=== PATIENT | female | born 1965 | race Two or more races ===

== ENCOUNTER 2020-03-28 12:07 | Outpatient (CLI) | payer OTHER ==
[~2020-03-28 12:07] MED LIST: NABUMETONE500 MG PO; PERCOCET 5/3251 TAB PO
== END 2020-03-28 12:12 | disposition home or self-care (01) ==
LOC: SONOGRAMA 12:07
PROVIDERS: ATTEND Pathology Anatomic Pathology & Clinical Pathology
DX: E04.2 Nontoxic multinodular goiter (principal)

== ENCOUNTER 2023-07-28 11:28 | Inpatient (IN) | payer OTHER ==
[~2023-07-28] VITALS: Ht 162.6 cm; Wt 61.2 kg
--- NOTE | 2023-07-28 11:48 | NUR ---
SE RECIBE PACIENTE ALERTA Y ORIENTADA EN COMPANIA DE [facility]. AYE REFIERE QUE PACIENTE VIENE A TRISTAN POR REFERIDO DE DR.JORGE MORGANYA ENOCH PARA QUE ADMITAN A PACIENTE POR DX DE PIEDRAS EN LA VESICULA. PACIENTE REFIERE DOLOR ADBOMINAL. SE MIDEN S/V Y SE UBICA.
[2023-07-28] MEDS ORDERED: MEPERIDINE HCL/PF 50 MG/ML VIAL IM SCH (13:00)
[2023-07-28] MEDS ORDERED: CIPROFLOXACIN IN 5 % DEXTROSE 200 ML IV SCH (13:30)
[2023-07-28] MEDS ORDERED: METRONIDAZOLE/SODIUM CHLORIDE 500 MG/100 ML PIGGYBACK IV SCH (13:32)
[2023-07-28] MEDS ORDERED: PROMETHAZINE HCL 25 MG/ML AMPUL IM SCH (13:37)
[2023-07-28] MEDS ORDERED: POTASSIUM CHLORIDE/D5-0.9%NACL 20 MEQ/1,000 ML PIGGYBAG IV ONE (13:45)
[2023-07-28] MEDS ORDERED: MEPERIDINE HCL 25 MG/ML AMPUL IM PRN (13:45)
[2023-07-28] MEDS ORDERED: PROMETHAZINE HCL 25 MG/ML AMPUL IM PRN (14:25)
[2023-07-28 14:45] LABS: CALCIUM 9.2 mg/dL (8.5-10.1); CREATININE SERUM 0.73 mg/dL (0.55-1.02); GFR 81.88; POTASSIUM 3.24 mEq/L (3.5-5.1)
[2023-07-28 14:53] LABS: INR 1.02; PARTIAL THROMBOPLASTIN TIME 28.8 SECONDS (22.0-34.0); PROTHROMBIN TIME 10.7 SECONDS (9.0-11.5)
[2023-07-28] MEDS ORDERED: FAMOTIDINE/PF 20 MG in 0.9 % SODIUM CHLORIDE 8 ML IV PUSH SCH (16:11)
[2023-07-28] MEDS ORDERED: POTASSIUM CHLORIDE IN WATER 100 ML IV ONE (16:15)
[2023-07-28 17:02] LABS: HEMATOCRIT 37.2 % (36.0-45.00); HEMOGLOBIN 12.4 g/dL (12.0-15.00); MEAN CELL VOLUME 89.1 fL (80.00-100.00); MEAN CORPUSCULAR HEMOGLOBIN 29.7 pg (27.00-32.0); MEAN CORPUSCULAR HGB CONC 33.4 g/dl (32.0-36.0); PLATELET COUNT 239 K/uL (150-450); RED BLOOD COUNT 4.18 M/uL (4.00-6.00); RED CELL DISTRIBUTION WIDTH 13.9 % (11.5-14.5)
[2023-07-28] MEDS ORDERED: DEXTROSE 50 % IN WATER 0.5 G/ML DISP.SYRIN IV PRN (17:30)
[2023-07-28] MEDS ORDERED: INSULIN LISPRO 1,000 UNIT/10 ML UNITS SUBCUTANEO PRN (17:30)
[2023-07-28 19:27] LABS: URINE APPEARANCE Clear; URINE BILIRRUBIN Negative (NEGATIVE); URINE BLOOD Negative; URINE COLOR Yellow; URINE GLUCOSE Negative (NEGATIVE); URINE LEUKOCYTE Trace; URINE NITRATE Negative; URINE PROTEIN Negative (NEGATIVE); URINE UROBILINOGEN 0.2 E.U./dl
[2023-07-28 19:31] LABS: URINE BACTERIA 731.8 uL (0.0-1933); URINE EPITHELIAL CELLS 17.4 uL (0.0-38.8); URINE RBC 11.6 uL (0.0-20.8); URINE WBC 12.5 uL (0.0-23.2)
[2023-07-29 05:11] LABS: HEMATOCRIT 39.5 % (36.0-45.00); HEMOGLOBIN 12.9 g/dL (12.0-15.00); MEAN CELL VOLUME 91.2 fL (80.00-100.00); MEAN CORPUSCULAR HEMOGLOBIN 29.9 pg (27.00-32.0); MEAN CORPUSCULAR HGB CONC 32.7 g/dl (32.0-36.0); PLATELET COUNT 169 K/uL (150-450); RED BLOOD COUNT 4.33 M/uL (4.00-6.00); RED CELL DISTRIBUTION WIDTH 13.4 % (11.5-14.5)
[2023-07-29 05:39] LABS: BILIRUBIN TOTAL 0.47 mg/dL (0.3-1.2); CALCIUM 8.5 mg/dL (8.5-10.1); CREATININE SERUM 0.64 mg/dL (0.55-1.02); GFR 95.31; GLOBULINA 3.3 G/DL (2.4-3.5); MAGNESIUM 1.7 mg/dL (1.8-2.4); PHOSPHOROUS 4.4 mg/dL (2.5-4.9); POTASSIUM 4.2 mEq/L (3.5-5.1); TOTAL PROTEIN 6.3 gm/dL (6.4-8.2)
[2023-07-29] MEDS ORDERED: PATIENTS OWN MEDICATION (MEDICAMENTO EN PISO) PO SCH (09:00)
[2023-07-29] MEDS ORDERED: 0.9 % SODIUM CHLORIDE 1,000 ML IV SCH (15:45)
[2023-07-30] MEDS ORDERED: SUGAMMADEX SODIUM 200 MG/2 ML VIAL IV ONE ×2 (07:57→08:30)
[2023-07-30] MEDS ORDERED: BUPIVACAINE HCL/PF 0.5% 30ML ML ONE (07:57)
[2023-07-30] MEDS ORDERED: BUPIVACAINE HCL/PF 0.5% 5MG/ML VIAL IJ ONE (08:30)
[2023-07-30] MEDS ORDERED: PATIENTS OWN MEDICATION (MEDICAMENTO EN PISO) PO SCH (09:00)
[2023-07-30] MEDS ORDERED: OxyCODONE HCL/APAP UD (PERCOCET) PO PRN (09:30)
[2023-07-30] MEDS ORDERED: MEPERIDINE HCL/PF 50 MG/ML VIAL IM PRN (09:30)
[2023-07-30] MEDS ORDERED: ONDANSETRON HCL 2 MG/ML VIAL ONE (10:47)
[2023-07-30] MEDS ORDERED: POTASSIUM CHLORIDE/D5-0.45NACL 20 MEQ/1,000 ML PIGGYBAG IV NR (11:43)
[2023-07-30] MEDS ORDERED: CIPROFLOXACIN IN 5 % DEXTROSE 400 MG/200 ML PIGGYBAG IV ONE (12:32)
[2023-07-30] MEDS ORDERED: FAMOTIDINE/PF 20 MG/2 ML VIAL ONE (12:32)
[2023-07-30] MEDS ORDERED: FAMOTIDINE/PF 20 MG/2 ML VIAL IV SCH (21:00)
== END 2023-07-31 12:23 | disposition home or self-care (01) | DRG 419 ==
LOC: ER 11:28 → MEDJ 14:43 → SEC-K 14:43 → MEDJ 16:59 → SURH 07-30 10:52
PROVIDERS: General Practice; Internal Medicine; ADMIT Specialist; ATTEND Specialist
PROC: BF37ZZZ Magnetic Resonance Imaging (MRI) of Pancreas (ICD-10-PCS; 2023-07-28)
PROC: BW40ZZZ Ultrasonography of Abdomen (ICD-10-PCS; 2023-07-29)
PROC: BF522Z0 Other Imaging of Gallbladder using Fluorescing Agent, Intraoperative (ICD-10-PCS; 2023-07-30)
PROC: 0FT44ZZ Resection of Gallbladder, Percutaneous Endoscopic Approach (ICD-10-PCS; principal; 2023-07-30 07:00)
DX: K80.10 Calculus of gallbladder with chronic cholecystitis without obstruction (principal); Z20.822 Contact with and (suspected) exposure to COVID-19; E03.9 Hypothyroidism, unspecified

== ENCOUNTER 2024-09-01 11:43 | Outpatient (CLI) | payer OTHER | END 2024-09-01 12:25 | disposition home or self-care (01) | LOC: MRI 11:43 | PROVIDERS: ATTEND Orthopaedic Surgery | DX: M25.562 Pain in left knee (principal) | CPT/HCPCS: 73721 ==